=== PATIENT | female | born 1970 | race Hispanic/Latino ===

== ENCOUNTER → 2017-08-05 | Outpatient (CLI) | payer OTHER ==
[~2017-08-05] VITALS: Ht 165.1 cm; Wt 105.2 kg
[~2017-08-05] MED LIST: AMLODIPINE BESY10 MG PO; ATARAX,VISTARIL25 MG PO; BUSPAR15 MG PO; BUSPIRONE HCL10 MG PO; CAMPRAL333 MG PO; CELEBREX200 MG PO; COBAL-10001000 MCG/2 IM; DIAZEPAM10 MG PO; ERGOCALCIF50000 UNIT PO; ESCITALOPRAM OX20 MG PO; Ecotrin PO; FLONASE ALLERG9.9 ML BOTH NARES; FLONASE16 G1 BOTH NARES; IMODIUM A-D2 M2 PO; IRON325 M1 PO; LOPRESSOR25 MG PO; LORAZEPAM0.5 MG PO; LORAZEPAM1 MG PO; LOSARTAN POTASS50 MG PO; LUNESTA1 MG PO; LUNESTA3 MG PO; MULTIVITAMIN1 EAC1 PO; MULTIVITAMIN1 EAC2 PO; PAXIL40 MG PO; QUETIAPINE FUM100 MG PO; SEROQUEL50 MG PO; TOPAMAX15 MG PO; TRAZODONE HCL50 MG PO; TYLENOL EXTRA500 MG PO; VITAMIN B-121000 MC4 SL; VITAMIN B12; VITAMIN D50000 UNI1 PO; VOLTAREN50 MG PO; WELLBUTRIN XL150 MG PO; WELLBUTRIN XL300 MG PO; ZANTAC150 MG PO; ZOFRAN4 MG PO; ZYRTEC10 M3 PO
== END | disposition home or self-care (01) ==
LOC: AMB 07-08 13:30
DX: D50.9 Iron deficiency anemia, unspecified (principal); K52.9 Noninfective gastroenteritis and colitis, unspecified; R10.13 Epigastric pain; R10.11 Right upper quadrant pain; Z98.84 Bariatric surgery status; E66.9 Obesity, unspecified; Z68.37 Body mass index [BMI] 37.0-37.9, adult; E55.9 Vitamin D deficiency, unspecified; Z83.3 Family history of diabetes mellitus; Z83.49 Family history of other endocrine, nutritional and metabolic diseases; Z82.49 Family history of ischemic heart disease and other diseases of the circulatory system; Z88.2 Allergy status to sulfonamides; Z88.5 Allergy status to narcotic agent
CPT/HCPCS: 88305; 93005; J2250